=== PATIENT | female | born 1990 | race Caucasian/White ===

== ENCOUNTER 2019-06-10 01:05 | Inpatient (IN) | payer BC ==
[2019-06-10] MEDS ORDERED: Buffered Lidocaine 1% SYRIN* 1 ML/SYRINGE INTRADERM ONE (02:07)
[2019-06-10] MEDS ORDERED: Lactated Ringers 1000 ML Bag* 1,000 ML IV ONE (02:07)
--- NOTE | 2019-06-10 02:19 | HP ---
General Information - Reason for Visit Contractions - General Information Maternal Age: 29 Grav: 1 Para: 0 SAB: 0 IEA: 0 Estimated Due Date: 05/31/19 Determined By: LMP Gestational Age in Weeks/Days: 41 3/7 Maternal Blood Type and Rh: O Positive - Results this Serology/RPR Result: Non-Reactive Rubella Result: Immune HBsAg Result: Negative HIV Result: Negative GBS Culture Result: Positive Past Medical History Delivery History: See Records Delivery History Comment: no previous deliveries Pertinent Past Medical History: See Records Past Medical History Comment: depression/anxiety, scoliosis Pertinent Past Surgical History: See Records Past Surgical History Comment: ACL repair, oral surgery Pertinent Family History: See Records Family History Comment: Father: diabetes - Antepartal Records Antepartal Records: Reviewed, Complicated by: - scoliosis, GBS positive Review of Systems Constitutional: Uncomfortable CV Complaint: No Respiratory: Shortness of Breath: No Gastrointestinal: Normal Bowel Movement, Nausea, Vomiting Genitourinary: No Dysuria, No Bleeding, No Leaking Fluid Musculoskeletal: No Epigastric Pain, Contractions Neurological: No Headache, No Visual Changes Movement: Normal Exam Allergies/Adverse Reactions: Allergies No Known Allergies Allergy (Verified 06/10/19 01:39) B/P: 133/75, P: 76, R: 18, T: 99.1 - Exam Breast: Breast Exam Deferred CVA: No CVA Tenderness Extremities: No Edema Heart: Normal Rhythm/Heart Sounds HEENT: No Significant Findings Lungs: Clear Bilaterally Reflexes: DTR 2+ - Abdominal Exam Abdomen Exam: Non-Tender, Fundal Height Consistent with Dates - Ultrasound/Biophysical Profile Ultrasound Status: Not Done Targeted Exam Findings See L&D Outpatient Visit Provider Note for Findings: N/A Estimated Weight: 8 lbs by gustavo's Cervical Exam: 5cm Effacement: 90% Station: -2 Presenting Part: Vertex Membrane Status: Intact Bleeding/Discharge: Bloody Show EFM Findings - External Monitor Findings Baseline Heart Rate: 125 External Monitor Findings: No Pattern of Variable or Late Decelerations, Variability Moderate, Baseline Stable Contractions: Regular, Moderate, 45-90 Seconds Contraction Frequency: 1.5-4 min Assessment/Plan - Assessment A: IUP at 41 3/7 weeks No evidence of metabolic acidemia GBS positive Active labor P: Admit to inpatient Ok to switch to intermittent auscultation once FHR tracing is reactive PARQ discussion re: antibiotics for GBS prophylaxis. Lucila morrisseyantly declines Reassess PRN Anticipate SVB - Obstetrical Risk Factors Obstetrical Risk Factors: GBS Positive, Post-Dates - Plan Plan: Admit - Anticipate Vaginal Delivery - Date/Time of Admission Date of Admission: 06/10/19 Time of Admission: 02:00
[2019-06-10] MEDS ORDERED: OBEPIDURAL* 0 ML EPIDURAL ONE (02:56)
[2019-06-10] MEDS ORDERED: Lactated Ringers 1000 ML Bag* 1,000 ML IV SCH ×2 (03:00→06:00)
[2019-06-10 03:05] LABS: Urine Benzodiazepine Screen None Detected (None Detect); Urine Opiates Screen None Detected (None Detect)
[2019-06-10] MEDS ORDERED: Oxytocin in LR* 20 UNITS/1,000 ML BAG IVPB ONE (03:11)
[2019-06-10 03:18] LABS: ABS Basophils 0.2 10^3/ul (0-0.2); ABS Eosinophils 0.3 10^3/ul (0-0.6); ABS Lymphocytes 2.3 10^3/ul (1.0-4.8); ABS Monocytes 1.1 10^3/ul (0-0.8); ABS Neutrophils 16.5 10^3/ul (1.5-7.7); Eosinophil % 1.4 %; Hematocrit 32 % (35-47); Hemoglobin 11.1 g/dL (12.0-16.0); Lymphocyte % 11.2 %; Mean Corpuscular HGB Conc 35 g/dL (31-36); Mean Corpuscular Hemoglobin 30 pg (27-31); Mean Corpuscular Volume 87 fL (80-97); Mean Platelet Volume 8.6 fL (7.4-10.4); Nucleated Red Blood Cells % 0.1; Platelet Count 242 10^3/uL (150-450); Red Blood Count 3.69 10^6 /uL (3.70-4.87); Red Cell Distribution Width 13 % (10-15); White Blood Count 20.3 10^3/uL (3.5-10.8)
[2019-06-10] MEDS ORDERED: Witch Hazel PAD* JAR TOPICAL PRN (05:45)
[2019-06-10] MEDS ORDERED: Dibucaine 1% 28.35 GM TUBE PR PRN (05:45)
[2019-06-10] MEDS ORDERED: Acetaminophen TAB* 325 MG PO PRN (05:45)
[2019-06-10] MEDS ORDERED: Glycerin ADULT SUPP PR PRN (05:45)
--- NOTE | 2019-06-10 06:03 | PROCNOTE ---
[facility] OB: Delivery Note - Delivery A Date of : 06/10/19 Time of : 04:16 [place] Sex: Male Weight at : 9 lb 3.269 oz Score 1 Minute: 9 Score 5 Minutes: 9 Gestational Age in Weeks and Days at Delivery: 41 Weeks and 3 Days Delivery Method: Spontaneous Vaginal Labor: Spontaneous Did Patient attempt ?: N/A, No Previous Amniotic Fluid: Clear Estimated Blood Loss: 1,000 Anesthesia/Analgesia: None Delivered By: Francine Gonzalez - Nursery Level of Nursery: Regular/Bedside - Perineum Perineal Injury: Perineal Laceration, 2nd Degree Perineal Injury Comment: and bilateral labial laceration Perineal Repair: By Delivering Practioner - Events Delivery Events of Note: Pitocin Only After Delivery, Antibiotics Indicated - Not Given, Post- Bleeding - Meds Given Delivery Events of Note Comment: patient GBS positive, refused antibiotics per CNM recommendation, cytotec given rectally for PP bleeding - Risk for Falls Delivered OB Patient- Risk for Falls: Heavy Bleeding Fall Risk: Patient is at High Risk for Falls - Additional Delivery Notes Additional Delivery Notes: in spontaneous labor experienced SROM to clear fluid at 0228, progressed to complete and complete. Began pushing at 0314 with good maternal effort. Slow controlled delivery of head OA to [place] at 0416, shoulders followed easily with next push. Male infant delivered to maternal abdomen, vigorous with spontaneous cry, HR >110. Apgars 9 and 9. Cord was doubly clamped and cut by RN once pulsations ceased. Placenta delivered via anne at 0423, appears intact. Fundus initially boggy, clots expressed. IV pitocin initiated. Perineum inspected, second degree perineal laceration and bilateral labial lacerations noted, repaired under lidocaine infiltration with 3-0 vicryl and 4-0 vicryl rapide. Brisk bleeding observed during repair, 800 mcg rectal cytotec given and then repair resumed. EBL = 1050 cc, mother and infant stable at time of note. initiated
[2019-06-10] MEDS ORDERED: Lidocaine 1% INJ* 10 MG/ML 30 ML SDV ONE (06:18)
[2019-06-10] MEDS ORDERED: Misoprostol TAB* 200 MCG ONE (06:22)
[2019-06-10] MEDS: Simethicone TAB* 80 MG TAB.CHEW PO SCH ×2 (09:48→15:56)
[2019-06-10] MEDS: Ibuprofen TAB* 600 MG PO SCH ×2 (09:48→15:56)
[2019-06-10] MEDS: Docusate CAP* 100 MG PO SCH ×3 (10:19→21:28)
[2019-06-11] MEDS: Ibuprofen TAB* 600 MG PO SCH ×6 (03:15→21:21)
[2019-06-11 06:59] LABS: ABS Eosinophils 0.1 10^3/ul (0-0.6); ABS Lymphocytes 2.5 10^3/ul (1.0-4.8); ABS Neutrophils 15.7 10^3/ul (1.5-7.7); Eosinophil % 0.7 %; Hematocrit 25 % (35-47); Hemoglobin 8.8 g/dL (12.0-16.0); Mean Corpuscular HGB Conc 35 g/dL (31-36); Mean Corpuscular Hemoglobin 30 pg (27-31); Mean Corpuscular Volume 88 fL (80-97); Mean Platelet Volume 7.8 fL (7.4-10.4); Platelet Count 198 10^3/uL (150-450); Red Cell Distribution Width 13 % (10-15); White Blood Count 19.4 10^3/uL (3.5-10.8)
[2019-06-11] MEDS: Docusate CAP* 100 MG PO SCH ×4 (08:56→21:15)
[2019-06-11] MEDS: Ferrous Gluconate TAB* 324 MG TAB PO SCH ×2 (08:56→21:15)
[2019-06-12] MEDS: Ferrous Gluconate TAB* 324 MG TAB PO SCH (08:16)
[2019-06-12] MEDS: Docusate CAP* 100 MG PO SCH (08:16)
[2019-06-12 08:38] VITALS: BP 114/70
[2019-06-12] MEDS: Ibuprofen TAB* 600 MG PO SCH (12:22)
== END 2019-06-12 12:40 | disposition home or self-care (01) | DRG 560 ==
LOC: MCHOBOUT 01:05 → MCHOB 02:06
PROVIDERS: ADMIT Midwife; ATTEND Midwife
PROC: 10E0XZZ Delivery of Products of Conception, External Approach (ICD-10-PCS; principal; 2019-06-10)
PROC: 0KQM0ZZ Repair Perineum Muscle, Open Approach (ICD-10-PCS; 2019-06-10)
DX: O99.344 Other mental disorders complicating childbirth (principal); O72.1 Other immediate postpartum hemorrhage; Z37.0 Single live birth; O48.0 Post-term pregnancy; O99.824 Streptococcus B carrier state complicating childbirth; O70.1 Second degree perineal laceration during delivery; F41.8 Other specified anxiety disorders; O75.89 Other specified complications of labor and delivery; M41.9 Scoliosis, unspecified; Z3A.41 41 weeks gestation of pregnancy; O90.81 Anemia of the puerperium; D64.9 Anemia, unspecified
CPT/HCPCS: 36415; 80307; 85025; 86850; 86900; 86901; A9270-GY; G0480